=== PATIENT | female | born 1940 | race Caucasian/White ===

== ENCOUNTER → 2016-07-22 | Outpatient (CLI) | payer BC ==
[~2016-07-22] MED LIST: ASCA500 PO; CALCTAB91 PO; METO1TAB31 PO; METO25TA3 PO; MISCCAP80 PO; MULTTAB58 PO; UREA 40% TOP; VITA400C3 PO; WARF2TAB PO; WARF4TAB PO
== END | disposition home or self-care (01) ==
LOC: C.PAPS 16:08
PROVIDERS: ATTEND Obstetrics & Gynecology
DX: C50.919 Malignant neoplasm of unspecified site of unspecified female breast (principal); Z01.419 Encounter for gynecological examination (general) (routine) without abnormal findings

== ENCOUNTER → 2016-10-19 | Outpatient (CLI) | payer BC ==
[~2016-10-19] MED LIST changes: +AMOX500C3 PO; +ASCO500T16 PO; +DIGO0.1219 PO; +METO-478 PO; -METO1TAB31 PO
[2016-10-19 12:40] LABS: BASO % 0.5 %; BASO ABS # 0.03 K/uL (0-0.2); COMPLETE YES; EOS % 2.6 %; HEMATOCRIT 41.7 % (37-47); IG% 0.2 %; LYMPH % 25.5 %; LYMPH ABS # 1.45 K/uL (1.2-3.4); MEAN CELL VOLUME 88.3 fL (80-100); MEAN CORPUSCULAR HEMOGLOBIN 29.4 pg (25-34); MEAN CORPUSCULAR HGB CONC 33.3 g/dl (32-36); MEAN PLATELET VOLUME 10.2 fL (7.4-10.4); MONO % 8.6 %; NEUT % 62.6 %; PLATELET COUNT 209 K/uL (130-400); RED BLOOD COUNT 4.72 M/uL (4.2-5.4); WHITE BLOOD COUNT 5.68 K/uL (4.8-10.8)
[2016-10-19 13:41] LABS: ALT/SGPT 23 U/L (12-78); BLOOD UREA NITROGEN 13 mg/dl (7-18); BUN/CREATININE RATIO 20.9 (10-20); CARBON DIOXIDE 31 mmol/L (21-32); CHLORIDE 105 mmol/L (98-107); CHOLESTEROL 210 mg/dl (0-200); CREATININE 0.64 mg/dl (0.60-1.20); GLUCOSE 82 mg/dl (70-99); POTASSIUM 3.9 mmol/L (3.5-5.1); SODIUM 142 mmol/L (136-145); TRIGLYCERIDES 52 mg/dl (0-150); VERY LOW DENSITY LIPOPROT CALC 10 mg/dl
[2016-10-19 13:43] LABS: URINE APPEARANCE CLEAR (CLEAR); URINE BILIRUBIN NEG (NEG); URINE COLOR YELLOW; URINE NITRITE NEG (NEG); URINE SPECIFIC GRAVITY 1.015 (1.000-1.030); UROBILINOGEN NEG (NEG)
[2016-10-19 13:51] LABS: MANUAL MICROSCOPIC REQUIRED? NO; REVIEW REQ? NO
[2016-10-19 13:53] LABS: ALB/GLOB RATIO 1.2 (0.9-2); ALKALINE PHOSPHATASE 75 U/L (45-117); AST/SGOT 18 U/L (15-37); CHOLESTEROL/HDL RATIO 2.4; HDL CHOLESTEROL 89 mg/dl; LDL CHOLESTEROL CALCULATED 111 mg/dl
[2016-10-21 12:34] LABS: C-REACTIVE PROT HIGHSEN 0.8 MG/L
--- NOTE | 2016-10-23 13:02 | CODING QUERY MEDICAL NECESSITY ---
CQSUPPORTING DIAGNOSIS NEEDED A supporting diagnosis is required for the test/procedure performed on this patient in order for us to be reimbursed by the patient's insurance. Please provide a supporting diagnosis for the following test/procedure listed below next to the test name along with your signature. *If there is no additional diagnosis for this patient that would support the following test/procedure please document that below next to the test/procedure. Test(s)/Procedure(s) that require a supporting diagnosis: DOS 10/19/16 VITAMIN D TEST C-REACTIVE PROTEIN HIGH SENSITIVITY TEST Provider Signature: Date: Thank you Shelbi Solo Health Information Management Once completed, please kindly fax back to [phone] For questions please call [phone]
== END | disposition home or self-care (01) ==
LOC: C.LAB1850 09:55
PROVIDERS: ATTEND Chiropractor
DX: Z86.79 Personal history of other diseases of the circulatory system (principal)

== ENCOUNTER 2017-06-08 11:02 | Emergency (ER) | payer BC ==
[~2017-06-08] VITALS: Ht 167.6 cm; Wt 57.0 kg
[~2017-06-08 11:02] MED LIST changes: -AMOX500C3 PO; -ASCO500T16 PO; -DIGO0.1219 PO
[2017-06-08 11:05] VITALS: TEMP 36.7; Ht 167.6 cm; Wt 57.0 kg
[2017-06-08] MEDS ORDERED: ALBUTEROL HFA 8 GM INHALER INH STA (11:13)
--- NOTE | 2017-06-08 11:27 | EMERGENCY ROOM VISIT NOTE ---
History Report prepared by Vikram: Marianne Lott Under the Supervision of: Dr. Gilberto Jj M.D. First contact with patient: 11:11 Chief Complaint: COUGH Stated Complaint: COUGHING, WHEEZING-LITTLE FRESH BLOOD THIS AM Nursing Triage Summary: pt c/o cough and wheezing and started to cough up blood today, pt is on coumadin History of Present Illness The patient is a 76 year old female who presents to the Emergency Room with complaints of an intermittent cough over the last 2 days. Per her daughter, the patient has also been coughing up bright red blood in small amounts. Per her daughter, the patient is on Coumadin. Per her , the patient has also been wheezing. The patient denies having a recent fever. Per her , the patient had her Coumadin level checked 1 week ago, and that the patient's level is usually between 2 and 3. The patient reports that she is on Coumadin because of an aortic valve replacement. The patient denies a history of lung problems and congestive heart failure. Source of History: patient, family (daughter), spouse/significant other ( ) Onset: 2 days ago Position: other (global) Quality: other (cough ) Timing: intermittent Associated Symptoms: No fevers Note: additional symptoms: coughing up blood, wheezing Review of Systems All systems have been listed, reviewed, and are negative other than those previously mentioned. Please see Additional Medical History Sheet. Past Medical & Surgical Medical Problems: (1) Atrial Fibrillation Surgical Problems: (1) H/O bilateral mastectomy (2) Mechanical heart valve present Family History Cancer Social History Smoking Status: Never Smoker Drug Use: none Marital Status: Housing Status: lives with family Occupation Status: retired Current/Historical Medications Scheduled Amoxicillin (Amoxil), 500 MG PO TID Ascorbic Acid (Ascorbic Acid), 500 MG PO DAILY Digoxin (Digox), 1 TAB PO DAILY Metoprolol Succ (Toprol Xl) (Toprol-Xl), 37.5 MG PO BID Multiple Vitamin (Multivitamin), 1 TAB PO DAILY Probiotic Product (Probiotic), 4 CAPSULES PO DAILY Warfarin Sodium (Coumadin), 4 MG PO 6XWK Warfarin Sodium (Coumadin), 2 MG PO WK Allergies Coded Allergies: Erythromycin (Verified Allergy, Unknown, UNKNOWN, 06/08/17) Latex (Verified Allergy, Unknown, UNKNOWN, 06/08/17) Tetracycline (Verified Allergy, Unknown, UNKNOWN, 06/08/17) Uncoded Allergies: NITROFURATOIN (Allergy, Unknown, UNKNOWN, 12/02/11) SULFA (Allergy, Unknown, UNKNOWN, 12/02/11) TRIPLE ANTIBIOTIC OINTMENT (Allergy, Unknown, UNKNOWN, 12/02/11) Physical Exam Vital Signs Date Time Temp Pulse Resp B/P (MAP) Pulse Ox O2 Delivery O2 Flow Rate FiO2 06/08/17 13:41 86 20 140/76 95 06/08/17 12:12 72 06/08/17 11:54 95 Room Air 06/08/17 11:18 96 Room Air 06/08/17 11:05 36.7 79 20 124/88 95 Room Air Physical Exam GENERAL: Patient awake, alert, oriented x 3. Patient follows commands. Patient does not appear toxic. Patient is adequately hydrated and well- nourished. SKIN: No erythema, pallor, cyanosis or rash HEENT: Normal head, pupils equal, reactive to light and accommodation. Ears normal. Oral cavity and posterior pharynx appear normal. Neck: Without adenopathy, no neck vein distention. LUNGS: Patient has wheezes in all rees. No rales, no rhonchi. HEART: No murmurs. No gallops. No rubs CHEST: Double mastectomy. ABDOMEN: No masses, no rebound, no hepatomegaly or splenomegaly. EXTREMITIES: No signs of trauma. No pedal or pretibial edema. No calf or thigh tenderness. NEUROLOGIC: Cranial nerves II-XII within normal limits. No gross motor sensory function deficits. Medical Decision & Procedures ER Provider Diagnostic Interpretation: Radiology results as stated below per my review and radiologist interpretation: CHEST 2 VIEWS ROUTINE HISTORY: 76 years-old Female hemoptysis acute wheezing COMPARISON: Chest radiograph 12/29/2014 TECHNIQUE: PA and lateral views of the chest FINDINGS: Prior median sternotomy. There is atherosclerosis of the aorta. Surgical clips project over the bilateral axilla and left heart. Prosthetic cardiac valve noted. There is no pneumothorax, pleural effusion, focal airspace consolidation or overt pulmonary edema. Lungs are mildly hyperinflated. The bones appear grossly intact. IMPRESSION: No acute cardiopulmonary process. The above report was generated using voice recognition software. It may contain grammatical, syntax or spelling errors. Electronically signed by: Yinka Ly M.D. 06/08/2017 12:53 PM Dictated Date/Time: 06/08/2017 12:51 PM Laboratory Results 06/08/17 11:48 Red Blood Count 4.45, Mean Corpuscular Volume 89.4, Mean Corpuscular Hemoglobin 29.2, Mean Corpuscular Hemoglobin Concent 32.7, Mean Platelet Volume 9.6, Neutrophils (%) (Auto) 75.0, Lymphocytes (%) (Auto) 13.4, Monocytes (%) (Auto) 9.7, Eosinophils (%) (Auto) 1.5, Basophils (%) (Auto) 0.3, Neutrophils # (Auto) 5.98, Lymphocytes # (Auto) 1.07, Monocytes # (Auto) 0.77, Eosinophils # (Auto) 0.12, Basophils # (Auto) 0.02 06/08/17 11:48 Test 06/08/17 11:48 White Blood Count 7.97 K/uL (4.8-10.8) Red Blood Count 4.45 M/uL (4.2-5.4) Hemoglobin 13.0 g/dL (12.0-16.0) Hematocrit 39.8 % (37-47) Mean Corpuscular Volume 89.4 fL (80-100) Mean Corpuscular Hemoglobin 29.2 pg (25-34) Mean Corpuscular Hemoglobin Concent 32.7 g/dl (32-36) Platelet Count 220 K/uL (130-400) Mean Platelet Volume 9.6 fL (7.4-10.4) Neutrophils (%) (Auto) 75.0 % Lymphocytes (%) (Auto) 13.4 % Monocytes (%) (Auto) 9.7 % Eosinophils (%) (Auto) 1.5 % Basophils (%) (Auto) 0.3 % Neutrophils # (Auto) 5.98 K/uL (1.4-6.5) Lymphocytes # (Auto) 1.07 K/uL (1.2-3.4) Monocytes # (Auto) 0.77 K/uL (0.11-0.59) Eosinophils # (Auto) 0.12 K/uL (0-0.5) Basophils # (Auto) 0.02 K/uL (0-0.2) RDW Standard Deviation 43.0 fL (36.4-46.3) RDW Coefficient of Variation 13.1 % (11.5-14.5) Immature Granulocyte % (Auto) 0.1 % Immature Granulocyte # (Auto) 0.01 K/uL (0.00-0.02) Prothrombin Time 32.8 SECONDS (9.0-12.0) Prothromb Time International Ratio 2.9 (0.9-1.1) Activated Partial Thromboplast Time 40.7 SECONDS (21.0-31.0) Partial Thromboplastin Ratio 1.6 Anion Gap 6.0 mmol/L (3-11) Est Creatinine Clear Calc Drug Dose 61.4 ml/min Estimated GFR () 97.3 Estimated GFR (Non- 84.0 BUN/Creatinine Ratio 17.4 (10-20) Calcium Level 9.1 mg/dl (8.5-10.1) Total Bilirubin 0.3 mg/dl (0.2-1) Aspartate Amino Transf (AST/SGOT) 28 U/L (15-37) Alanine Aminotransferase (ALT/SGPT) 22 U/L (12-78) Alkaline Phosphatase 79 U/L (45-117) Total Protein 7.3 gm/dl (6.4-8.2) Albumin 3.5 gm/dl (3.4-5.0) Globulin 3.8 gm/dl (2.5-4.0) Albumin/Globulin Ratio 0.9 (0.9-2) Chemistry Specimen Hemolysis Laboratory results as stated above per my review. Medications Administered Medications (Trade) Dose Ordered Sig/Lamonte Route Start Time Stop Time Status Last Admin Dose Admin Albuterol (Ventolin Hfa Inhaler) 2 puffs NOW STAT INH 06/08/17 11:13 06/08/17 11:31 DC 06/08/17 12:04 2 PUFFS ECG Indication: SOB/dyspnea Rate (beats per minute): 68 Rhythm: normal sinus Findings: no ectopy, other (left ventricular hypertrophy) ED Course 1110: Past medical records reviewed. The patient was evaluated in room C10. A complete history and physical examination was performed. 1113: Ordered Albuterol 2 puffs INH. 1320: Upon reevaluation, the patient appeared to have improvement of her symptoms. I discussed today's findings with her. She verbalized agreement of the treatment plan. She was discharged home. Medical Decision Nurses notes reviewed. Medical history sheet reviewed. Differential diagnosis includes but is not limited to: bronchitis, pneumonia, hemoptysis, neoplasm, and coagulopathy. 76-year-old female here with hemoptysis. The patient has no fever or chills. She does not appear ill. Lungs reveal some wheezing. The patient improved with albuterol inhaler. The patient will be sent home on the same. INR is 2.9. Hemoglobin hematocrit are stable. Patient is no evidence of pneumonia or neoplastic disease. The patient will continue her Coumadin at the same level. The patient has a heart valve prosthesis and therefore will be placed on antibiotics. The patient also has a prior history of atrial fibrillation but I believe the albuterol benefit outweighs its risk. Medication Reconcilliation Current Medication List: was personally reviewed by me Blood Pressure Screening Patient's blood pressure: Normal blood pressure Impression Primary Impression: Acute bronchitis Additional Impression: Hemoptysis Scribe Attestation The scribe's documentation has been prepared under my direction and personally reviewed by me in its entirety. I confirm that the note above accurately reflects all work, treatment, procedures, and medical decision making performed by me. Departure Information Dispostion Home / Self-Care Prescriptions Amoxicillin (AMOXIL) 500 Mg Cap 500 MG PO TID, #30 CAP Prov: Gilberto Jj M.D. 06/08/17 Referrals Magalys Crocker D.O. (PCP) Forms HOME CARE DOCUMENTATION FORM, IMPORTANT VISIT INFORMATION Patient Instructions My [facility] Additional Instructions 1 amoxicillin 3 times a day for 10 days. 2 puffs of Ventolin inhaler every 4 hours as needed for coughing or wheezing. Follow-up with your family physician within the next 10 days. Return here sooner if you have more hemoptysis or the coughing will not stop. Continue your same dose of Coumadin. Problem Qualifiers
[2017-06-08 11:54] VITALS: O2SAT 95
[2017-06-08] MEDS ORDERED: ASCO500T16 PO (12:03)
[2017-06-08] MEDS ORDERED: METO25TA3 PO (12:03)
[2017-06-08] MEDS ORDERED: DIGO0.1219 PO (12:04)
[2017-06-08 12:05] LABS: BASO % 0.3 %; BASO ABS # 0.02 K/uL (0-0.2); COMPLETE YES; EOS % 1.5 %; HEMATOCRIT 39.8 % (37-47); IG% 0.1 %; LYMPH % 13.4 %; LYMPH ABS # 1.07 K/uL (1.2-3.4); MEAN CELL VOLUME 89.4 fL (80-100); MEAN CORPUSCULAR HEMOGLOBIN 29.2 pg (25-34); MEAN CORPUSCULAR HGB CONC 32.7 g/dl (32-36); MEAN PLATELET VOLUME 9.6 fL (7.4-10.4); MONO % 9.7 %; PLATELET COUNT 220 K/uL (130-400); RED BLOOD COUNT 4.45 M/uL (4.2-5.4); WHITE BLOOD COUNT 7.97 K/uL (4.8-10.8)
[2017-06-08 12:13] LABS: INR 2.9 (0.9-1.1); PARTIAL THROMBOPLASTIN RATIO 1.6; PROTHROMBIN TIME (PATIENT) 32.8 SECONDS (9.0-12.0)
[2017-06-08 12:27] LABS: ALB/GLOB RATIO 0.9 (0.9-2); BUN/CREATININE RATIO 17.4 (10-20); CALCIUM 9.1 mg/dl (8.5-10.1); CREATININE 0.69 mg/dl (0.60-1.20); POTASSIUM 3.8 mmol/L (3.5-5.1)
--- NOTE | 2017-06-08 12:54 | DIAGNOSTIC IMAGING REPORT ---
CHEST 2 VIEWS ROUTINE HISTORY: 76 years-old Female hemoptysis acute wheezing COMPARISON: Chest radiograph 12/29/2014 TECHNIQUE: PA and lateral views of the chest FINDINGS: Prior median sternotomy. There is atherosclerosis of the aorta. Surgical clips project over the bilateral axilla and left heart. Prosthetic cardiac valve noted. There is no pneumothorax, pleural effusion, focal airspace consolidation or overt pulmonary edema. Lungs are mildly hyperinflated. The bones appear grossly intact. IMPRESSION: No acute cardiopulmonary process. The above report was generated using voice recognition software. It may contain grammatical, syntax or spelling errors. Electronically signed by: Yinka Ly M.D. 06/08/2017 12:53 PM Dictated Date/Time: 06/08/2017 12:51 PM
[2017-06-08] MEDS ORDERED: AMOX500C3 PO (13:29)
[2017-06-08 13:41] VITALS: BP 140/76; PULSE 86; O2SAT 95
== END 2017-06-08 13:43 | disposition home or self-care (01) ==
LOC: C.EDB 11:05 → C.EDC 13:43
DX: J20.9 Acute bronchitis, unspecified (principal); R04.2 Hemoptysis; I48.91 Unspecified atrial fibrillation; Z90.13 Acquired absence of bilateral breasts and nipples; Z95.2 Presence of prosthetic heart valve; Z79.01 Long term (current) use of anticoagulants; Z79.899 Other long term (current) drug therapy

== ENCOUNTER → 2017-08-24 | Outpatient (CLI) | payer BC ==
[~2017-08-24] MED LIST changes: -ASCA500 PO; +ASCO500T16 PO; -CALCTAB91 PO; +DIGO0.1219 PO; -METO-478 PO; -UREA 40% TOP; -VITA400C3 PO
== END | disposition home or self-care (01) ==
LOC: C.PAPS 12:27
PROVIDERS: ATTEND Obstetrics & Gynecology
DX: Z12.4 Encounter for screening for malignant neoplasm of cervix (principal)

== ENCOUNTER → 2017-09-07 | Outpatient (CLI) | payer BC | END | disposition home or self-care (01) | LOC: C.RDSM 23:01 | PROVIDERS: ATTEND Orthopaedic Surgery Sports Medicine | DX: S99.919A Unspecified injury of unspecified ankle, initial encounter (principal); S89.90XA Unspecified injury of unspecified lower leg, initial encounter; X58.XXXA Exposure to other specified factors, initial encounter ==